=== PATIENT | male | born 1990 | race Caucasian/White ===

== ENCOUNTER 2018-01-10 00:14 | Emergency (ER) | payer SELFPAY ==
[~2018-01-10] VITALS: Ht 180.3 cm; Wt 90.0 kg
[2018-01-10 00:18] VITALS: BP 158/82
== END 2018-01-10 00:37 | disposition left against medical advice (07) ==
LOC: ER 00:14
DX: F10.129 Alcohol abuse with intoxication, unspecified (principal); Y90.9 Presence of alcohol in blood, level not specified
CPT/HCPCS: 99283